=== PATIENT | female | born 1975 | race Caucasian/White ===

== ENCOUNTER → 2016-06-19 | Outpatient (CLI) | payer BC ==
--- NOTE | 2016-06-19 09:22 | REPMRS ---
Patient History The patient states she had a clinical breast exam in 06/26 Family history of prostate cancer in father at age 50 or over, breast cancer in mother under age 50, unknown cancer in mother at age 50 or over, and colorectal cancer in maternal grandmother at age 50 or over. Taking hormonal contraceptives for 17 years. Digital Woman Screen Mammo: June 19, 2016 - Exam #: [id number] Bilateral CC and MLO view(s) were taken. Technologist: Yani Bonds, Technologist Prior study comparison: June 21, 2015, digital woman screen mammo performed at [facility]. June 22, 2014, digital woman screen mammo performed at [facility]. FINDINGS: The breast tissue is heterogeneously dense. This may lower the sensitivity of mammography. There has been no change in the appearance of the mammogram from the prior studies. There is a moderate amount of residual fibroglandular tissue which is fairly symmetric. There is no interval development of dominant mass, areas of architectural distortion, or clustered microcalcification typical of malignancy. ASSESSMENT: BI-RADS/ACR category 1 mammogram. Negative. Recommendation Routine screening mammogram in 1 year (for women over age 40). This mammogram was interpreted with the aid of an FDA-approved computer-aided dectection system. Electronically Signed By: Bronson Mendes MD 06/19/16 0921
== END ==
LOC: M WHC 08:10
PROVIDERS: ATTEND Nurse Practitioner Women's Health
DX: Z12.31 Encounter for screening mammogram for malignant neoplasm of breast (principal); Z80.0 Family history of malignant neoplasm of digestive organs; Z80.3 Family history of malignant neoplasm of breast; Z92.0 Personal history of contraception; Z80.42 Family history of malignant neoplasm of prostate

== ENCOUNTER → 2016-09-04 | Outpatient (REF) | payer BC | LOC: M LAB REF 12:56 | PROVIDERS: ATTEND Family Medicine | DX: B35.8 Other dermatophytoses (principal) ==

== ENCOUNTER → 2017-06-20 | Outpatient (REF) | payer BC ==
[2017-06-22 14:20] LABS: HPV HYBRID CAPTURE II Negative (Negative)
== END ==
LOC: M SFHCWAGY 09:03
DX: Z12.4 Encounter for screening for malignant neoplasm of cervix (principal)
CPT/HCPCS: G0123

== ENCOUNTER → 2018-07-05 | Outpatient (CLI) | payer OTHER ==
--- NOTE | 2018-07-05 09:46 | REPMRS ---
Patient History The patient states she had a clinical breast exam in 06/2018. Family history of prostate cancer at age 50 or over in father, colorectal cancer at age 50 or over in maternal grandmother, breast cancer under age 50 in mother. Taking hormonal contraceptives for 19 years. 3D TOMOSYNTHESIS WAS PERFORMED. Digital Woman Screen Mammo: July 05, 2018 - Exam #: [id number] Bilateral CC and MLO view(s) were taken. Technologist: Yani Bonds, Technologist Prior study comparison: June 20, 2017, digital woman screen mammo performed at [facility]. June 19, 2016, digital woman screen mammo performed at [facility]. FINDINGS: The breast tissue is heterogeneously dense. This may lower the sensitivity of mammography. There has been no change in the appearance of the mammogram from the prior studies. There is a moderate amount of residual fibroglandular tissue which is fairly symmetric. There is no interval development of dominant mass, areas of architectural distortion, or clustered microcalcification typical of malignancy. Assessment: BI-RADS/ACR category 1 mammogram. Negative Mammogram. Recommendation Routine screening mammogram in 1 year (for women over age 40). This mammogram was interpreted with the aid of an FDA-approved computer-aided dectection system. THE LIFETIME RISK OF BREAST CANCER IS 21.7%, THEREFORE SUPPLEMENTAL SCREENING MRI OF THE BREASTS IS RECOMMENDED IN 6 MONTHS. Electronically Signed By: Bronson Mendes MD 07/05/18 0946
== END ==
LOC: M WHC 08:46
PROVIDERS: ATTEND Nurse Practitioner Women's Health
DX: Z12.31 Encounter for screening mammogram for malignant neoplasm of breast (principal); Z80.3 Family history of malignant neoplasm of breast; Z79.3 Long term (current) use of hormonal contraceptives

== ENCOUNTER → 2019-01-02 | Outpatient (CLI) | payer OTHER ==
[~2019-01-02] MED LIST: PROHANCE 279.3MG/ML 15ML VIAL (A9576) As Ordered ONE; PROHANCE 279.3MG/ML 5ML VIAL (A9576) As Ordered ONE
--- NOTE | 2019-01-02 15:47 | REP ---
MRI BILATERAL BREASTS WITH AND WITHOUT CONTRAST: HISTORY: Family history of breast cancer. [facility] lifetime risk of breast cancer 21.7%. Correlation mammogram 07/05/2018. TECHNIQUE: Multiple sequences obtained in the axial, coronal, and sagittal planes prior to and following the intravenous administration of 16 mL ProHance. Images are evaluated in [employer] software including dynamic post IV gadolinium axial T1 fat sat images, subtraction images, color overlay images and MIP reconstruction images. Moderate fibroglandular tissue is seen bilaterally. A couple of tiny cysts are seen less than 1 cm in diameter in each breast. A mild background parenchymal enhancement. There is no suspicious enhancing mass or morphologic abnormality. There is no axillary adenopathy. IMPRESSION: BI-RADS category 1 negative bilateral breast MRI. No suspicious mass or morphologic abnormality. No abnormal enhancement. Supplement screening MRI of the breasts is recommended annually for patients with elevated lifetime risk of breast cancer 20% or greater, in addition to annual screening mammography. Electronically Signed by Bronson Mendes MD 01/04/2019 11:00 A
== END ==
LOC: M RAD 10:23
PROVIDERS: ATTEND Nurse Practitioner Women's Health
DX: Z80.3 Family history of malignant neoplasm of breast (principal)

== ENCOUNTER → 2019-07-07 | Outpatient (CLI) | payer OTHER ==
--- NOTE | 2019-07-07 11:25 | REPMRS ---
Patient History The patient states she had a clinical breast exam in June 2019. Family history of prostate cancer at age 50 or over in father, colorectal cancer at age 50 or over in maternal grandmother, breast cancer under age 50 in mother. Taking hormonal contraceptives for 19 years. Digital Woman Screen Mammo: July 07, 2019 - Exam #: [id number] Bilateral CC and MLO view(s) were taken. Technologist: Shari Segura, Technologist Prior study comparison: July 05, 2018, bilateral digital woman screen mammo performed at [facility]. June 20, 2017, digital woman screen mammo performed at [facility]. June 19, 2016, digital woman screen mammo performed at [facility]. FINDINGS: There are scattered fibroglandular densities. There has been no change in the appearance of the mammogram from the prior studies. There is a mild amount of scattered fibroglandular density which is fairly symmetric. There is no interval development of dominant mass, architectural distortion, or grouped microcalcification suggestive of malignancy. 3-D tomosynthesis shows no additional findings. Assessment: BI-RADS/ACR category 1 mammogram. Negative Mammogram. Recommendation Breast MRI of both breasts in 6 months. Routine screening mammogram of both breasts in 1 year (for women over age 40). This patient's Lifetime Breast Cancer Risk is estimated at 21.5 %. Annual screening Breast MRI scanniing is recommended for patient's whose lifetime risk assessment is over 20%. This mammogram was interpreted with the aid of an FDA-approved computer-aided dectection system. Electronically Signed By: Marcos Bell MD 07/07/19 1124
== END ==
LOC: M WHC 09:14
PROVIDERS: ATTEND Nurse Practitioner Women's Health
DX: Z12.31 Encounter for screening mammogram for malignant neoplasm of breast (principal)

== ENCOUNTER → 2020-06-14 | Outpatient (REF) | payer OTHER | LOC: M SFHCWAGY 17:19 | PROVIDERS: ATTEND Nurse Practitioner Women's Health | DX: Z12.4 Encounter for screening for malignant neoplasm of cervix (principal) ==

== ENCOUNTER → 2020-07-26 | Outpatient (CLI) | payer OTHER ==
--- NOTE | 2020-07-26 14:05 | REPMRS ---
Patient History The patient states she had a clinical breast exam in June 2020. Family history of prostate cancer at age 50 or over in father, colorectal cancer at age 50 or over in maternal grandmother, breast cancer under age 50 in mother. Taking hormonal contraceptives for 20 years. Patient states no breast complaints today. Patient has signed MRS History Sheet. No covid vaccines. Pt denied . Digital Woman Screen Mammo: July 26, 2020 - Exam #: [id number] Bilateral CC and MLO view(s) were taken. Technologist: RT Brianna Prior study comparison: July 07, 2019, bilateral digital woman screen mammo performed at [facility]. July 05, 2018, bilateral digital woman screen mammo performed at [facility]. June 20, 2017, digital woman screen mammo performed at [facility]. FINDINGS: There are scattered fibroglandular densities. The Volpara volumetric breast density category is:B. There has been no change in the appearance of the mammogram from the prior studies. There is a mild amount of scattered fibroglandular density which is fairly symmetric. There is no interval development of dominant mass, architectural distortion, or grouped microcalcification suggestive of malignancy. 3-D tomosynthesis shows no additional findings. Assessment: BI-RADS/ACR category 1 mammogram. Negative Mammogram. Recommendation Breast MRI of both breasts in 6 months. Routine screening mammogram of both breasts in 1 year (for women over age 40). This patient's [facility] Lifetime Breast Cancer Risk is estimated at 21.2 %. This mammogram was interpreted with the aid of an FDA-approved computer-aided dectection system. Electronically Signed By: Marcos Bell MD 07/26/20 [id number]
== END ==
LOC: M WHC 12:55
PROVIDERS: ATTEND Nurse Practitioner Women's Health
DX: Z12.31 Encounter for screening mammogram for malignant neoplasm of breast (principal)

== ENCOUNTER → 2020-09-22 | Outpatient (CLI) | payer OTHER ==
--- NOTE | 2020-09-22 08:25 | REP ---
INDICATION: PAIN COMPARISON: None. TECHNIQUE: AP, lateral, bilateral oblique views left hand. FINDINGS: The osseous structures and joint spaces are intact and normal. There is no evidence for acute fracture or dislocation. Surrounding soft tissues are unremarkable. No subcutaneous emphysema or radiodense foreign body. No significant degenerative changes are appreciated. IMPRESSION: Age-appropriate left hand radiograph series. <Electronically signed by Talib Oliva > 09/22/20 [id number]
== END ==
LOC: M WUC 08:03
PROVIDERS: ATTEND Family Medicine
DX: M25.542 Pain in joints of left hand (principal)

== ENCOUNTER → 2021-10-25 | Outpatient (REF) | payer BC | LOC: M SFHCWAGY 16:54 | PROVIDERS: ATTEND Advanced Practice Midwife | DX: Z12.4 Encounter for screening for malignant neoplasm of cervix (principal) | CPT/HCPCS: 87624; G0123 ==

== ENCOUNTER → 2021-10-25 | Outpatient (CLI) | payer BC, OTHER | LOC: M WHC 13:52 | PROVIDERS: ATTEND Advanced Practice Midwife | DX: Z12.31 Encounter for screening mammogram for malignant neoplasm of breast (principal) ==

== ENCOUNTER → 2021-11-02 | Outpatient (CLI) | payer BC | LOC: M WHC 15:02 | PROVIDERS: ATTEND Advanced Practice Midwife | DX: N92.0 Excessive and frequent menstruation with regular cycle (principal) ==

== ENCOUNTER → 2021-11-02 | Outpatient (REF) | payer BC | LOC: M PLALAB 09:21 | PROVIDERS: ATTEND Advanced Practice Midwife | DX: Z12.4 Encounter for screening for malignant neoplasm of cervix (principal) ==

== ENCOUNTER → 2022-11-07 | Outpatient (REF) | payer BC | LOC: M SFHCWAGY 13:19 | PROVIDERS: ATTEND Advanced Practice Midwife | DX: Z12.4 Encounter for screening for malignant neoplasm of cervix (principal) | CPT/HCPCS: 87624; G0123 ==

== ENCOUNTER → 2022-11-07 | Outpatient (CLI) | payer BC | LOC: M WHC 08:22 | PROVIDERS: ATTEND Advanced Practice Midwife | DX: Z12.31 Encounter for screening mammogram for malignant neoplasm of breast (principal) ==

== ENCOUNTER → 2023-12-21 | Outpatient (CLI) | payer BC, SELFPAY | LOC: M WHC 14:47 | PROVIDERS: ATTEND Advanced Practice Midwife | DX: Z12.31 Encounter for screening mammogram for malignant neoplasm of breast (principal) ==

== ENCOUNTER → 2023-12-21 | Outpatient (REF) | payer BC, SELFPAY ==
[2023-12-25 15:17] LABS: HPV APTIMA Not Detected (Not Detected)
== END ==
LOC: M SFHCWAGY 17:10
PROVIDERS: ATTEND Advanced Practice Midwife
DX: Z12.4 Encounter for screening for malignant neoplasm of cervix (principal)

== ENCOUNTER → 2024-12-22 | Outpatient (CLI) | payer BC | LOC: M WHC 14:04 | PROVIDERS: ATTEND Advanced Practice Midwife | DX: Z12.31 Encounter for screening mammogram for malignant neoplasm of breast (principal); R92.323 Mammographic fibroglandular density, bilateral breasts | CPT/HCPCS: 77063; 77067; 87624; G0123 ==

== ENCOUNTER → 2024-12-22 | Outpatient (REF) | payer BC ==
[2024-12-24 14:06] LABS: HPV APTIMA Not Detected (Not Detected)
== END ==
LOC: M PLALAB 14:55
PROVIDERS: ATTEND Advanced Practice Midwife
DX: Z12.4 Encounter for screening for malignant neoplasm of cervix (principal)
CPT/HCPCS: 87624; G0123